=== PATIENT | female | born 1975 | race Caucasian/White ===

== ENCOUNTER 2016-10-01 05:24 | Day surgery (SDC) | payer BC ==
[2016-09-26 12:56] LABS: BASOPHILS 0.3 %; BASOPHILS ABSOLUTE 0.01 10/3/uL (0.0-0.16); EOSINOPHILS 2.4 %; EOSINOPHILS ABSOLUTE 0.09 10/3/uL (0.0-0.53); HEMATOCRIT 36.2 % (36.0-48.0); HEMOGLOBIN 11.9 g/dL (12.0-16.0); IMMATURE GRANULOCYTES 0.3 %; IMMATURE GRANULOCYTES ABSOLUTE 0.01 10/3/uL (0.0-0.11); LYMPHOCYTES 42.2 %; LYMPHOCYTES ABSOLUTE 1.58 10/3/uL (0.67-4.30); MANUAL DIFF NO %; MEAN CORPUS HGB CONC 32.9 g/dL (32.0-36.0); MEAN CORPUSCULAR HEMOGLOB 27.9 pg (26.0-34.0); MEAN PLATELET VOLUME 9.6 fL (9.2-13.0); MONOCYTES ABSOLUTE 0.26 10/3/uL (0.21-1.20); NEUTROPHILS 47.8 %; NEUTROPHILS ABSOLUTE 1.79 10/3/uL (2.02-8.40); PLATELET COUNT 192 10/3/uL (150-400); RBC DISTRIBUTION WIDTH 13.7 % (12.0-16.0); RED CELL COUNT 4.26 10/6/uL (4.0-5.6); WHITE BLOOD CELLS 3.7 10/3/uL (4.5-10.5)
[2016-09-26 13:13] LABS: A/G RATIO 1.4 (0.7-1.9); ALBUMIN 4.1 G/DL (3.5-5.0); ALKALINE PHOSPHATASE 56 U/L (45-117); BUN (BLOOD UREA NITROGEN) 7 MG/DL (6-23); CALCIUM, SERUM 8.5 MG/DL (8.5-10.4); CHLORIDE, SERUM 106 MMOL/L (96-112); CO2 (CARBON DIOXIDE) 30 MMOL/L (24-34); CREATININE 0.72 MG/DL (0.55-1.02); GFR AFRICAN AMERICAN 122 ML/MIN (>=60); GFR NON AFRICAN AMERICAN 105 ML/MIN (>=60); GLUCOSE, SERUM 67 MG/DL (60-99); POTASSIUM, SERUM 3.6 MMOL/L (3.5-5.3); SGOT(AST) 15 U/L (5-40); SGPT(ALT) 19 U/L (5-65); SODIUM, SERUM 143 MMOL/L (135-148); TOTAL BILIRUBIN 0.3 MG/DL (0-1.2); TOTAL PROTEIN 7.1 G/DL (6.0-8.5)
--- NOTE | ~2016-10-01 | OP ---
Record Of Operation [facility] [address] [place]. [address] NAME: CHIKA NOBLES : 79 STATUS : REG [facility] PAT#: [id number] AGE: 41 ADM/REG DATE : 10/01/16 MR#: [id number] REPORT SERV DATE: 10/01/16 DICTATED BY: PASCUAL PEREZ DATE: 10/01/16 REPORT STATUS : Draft TRANSCRIBED BY: MODL DATE: 10/01/16 DATE OF PROCEDURE: 10/01/2016 PREOPERATIVE DIAGNOSIS: Achalasia. POSTOPERATIVE DIAGNOSIS: Achalasia. PROCEDURE: 1. Laparoscopic Heller cardioesophageal myotomy and Lowell partial anterior fundoplication. 2. Esophagogastroscopy. SURGEON: Dr. Pascual Perez. RESIDENT SURGEON: Dr. Robert Barrientos. ANESTHESIA: General. ESTIMATED BLOOD LOSS: 30 mL. DETAILS OF PROCEDURE: The patient arrived in the operative suite and was placed on the table in supine position. General anesthesia was obtained via an endotracheal tube. The patient was placed in modified lithotomy. The abdomen was prepped and draped in a sterile manner. 0.5% Marcaine with epinephrine was infiltrated over the supraumbilical left rectus muscle. A small incision performed. A 10 mm blunt trocar inserted under laparoscopic visualization. Peritoneal cavity was insufflated with CO2 gas of 15 mmHg pressure. Additional trocars inserted under laparoscopic guidance in the bilateral anterior axillary lines, left subxiphoid, and right paramedian regions. The patient was placed in reverse Trendelenburg. The lateral segment of the left lobe of the liver was retracted anteriorly with self- retaining retractor. There was no evidence of hiatal hernia. Dissection proceeded with Harmonic estephanie along the gastrohepatic omentum. The crura were then freed from the esophagus in a 3 to 9 o'clock position anteriorly, incising the peritoneum at the esophageal hiatus. There were several centimeters of intraabdominal esophagus noted. The anterior vagus nerve was encircled with a vessel loop and retracted to the right. The fat pad overlying the cardia of the stomach anterolaterally was divided with the Harmonic estephanie. The endoscope was introduced and advanced to the distal esophagus, then on into the stomach. There was no obvious abnormality. This was suctioned free of air and fluid and using the scope for transillumination. Myotomy began stripping the muscle fibers away from the submucosa in the distal esophagus. This was extended for several centimeters proximally with blunt dissection and use of the Harmonic estephanie. Using continued transillumination distally, hook cautery was used to lyse fibers on the cardia until the scope could easily pass from within the esophagus to the stomach with no resistance whatsoever. Total length of the myotomy was in the 7 to 8 cm range. There was no suggestion of mucosal injury. The light on the scope was then turned off and anterior fundoplication performed fixing the right cut edge of the myotomy just proximal to the GE junction to stomach anteriorly and then wrapping the previously mobilized fundus, where the short gastric vessels had been divided with the Harmonic estephanie anteriorly to the anterior right dawson with two additional 0 Record Of Operation [address] [place]. [address] NAME: CHIKA NOBLES : 79 STATUS : REG [facility] PAT#: [id number] AGE: 41 ADM/REG DATE : 10/01/16 MR#: [id number] REPORT SERV DATE: 10/01/16 DICTATED BY: PASCUAL PEREZ DATE: 10/01/16 REPORT STATUS : Draft TRANSCRIBED BY: MODL DATE: 10/01/16 Ethibond sutures. The vessel loop had been previously removed prior to any suturing and the gastroscope was then removed. Liver retractor removed. Peritoneal cavity was desufflated and skin closure at all sites performed with subcuticular 4-0 Monocryl. Sterile dressing was applied and the patient awakened, extubated and taken to PACU. /SHANIA Pascual Perez M.D. / [id number] CC: Caren Brandon
[~2016-10-01 05:24] MED LIST: DSS PO; EZFE 200200 MG PO; LEXAPRO20 PO; MOBIC15 MG PO; NEXIUM40 PO; PLAQ200B PO; PROAIR HFA INH; SINGULAIR1 PO; SUCR PO; VITAMIN D31000 UNIT PO; VITE PO; WELLXL150 PO; ZYRTEC ALLGY10 MG PO
== END 2016-10-01 17:02 | disposition home or self-care (01) ==
LOC: SDC 05:24
PROVIDERS: Specialist
PROC: 0D844ZZ Division of Esophagogastric Junction, Percutaneous Endoscopic Approach (ICD-10-PCS; principal; 2016-10-01 06:45)
DX: K22.0 Achalasia of cardia (principal); E66.9 Obesity, unspecified; J44.9 Chronic obstructive pulmonary disease, unspecified; J45.909 Unspecified asthma, uncomplicated; K21.9 Gastro-esophageal reflux disease without esophagitis; L93.0 Discoid lupus erythematosus; D64.9 Anemia, unspecified; Z79.899 Other long term (current) drug therapy
CPT/HCPCS: 80053; 84703; 85025; A9270-GY; J0690; J1885; J2250; J2270; J2405; J2710; J3010